=== PATIENT | female | born 1950 | race Caucasian/White ===

== ENCOUNTER 2016-12-14 05:59 | Day surgery (SDC) | payer BC ==
[2016-12-14] VITALS (13 sets, daily range): BP systolic 113–140; BP diastolic 64–85; PULSE 52–67; RESP 10–18; Ht 162.6 cm; Wt 80.0 kg
[~2016-12-14] VITALS: Ht 162.6 cm; Wt 80.0 kg
[~2016-12-14 05:59] MED LIST: METOPROLOL PO
[2016-12-14] MEDS ORDERED: LACTATED RINGER'S 1,000 ML IV* SCH (06:00)
[2016-12-14] MEDS ORDERED: NAPR-688 PO (07:00)
[2016-12-14] MEDS ORDERED: LINA145C PO (07:00)
[2016-12-14] MEDS ORDERED: BISA5TAB6 PO (07:00)
[2016-12-14] MEDS ORDERED: FAMO40OR4 PO (07:00)
[2016-12-14] MEDS ORDERED: ATOR40TA68 PO (07:00)
[2016-12-14] MEDS ORDERED: METH16TA PO (07:00)
[2016-12-14] MEDS ORDERED: GABA100C14 PO (07:00)
--- NOTE | 2016-12-14 07:48 | HPN ---
Date/Time of Note Date/Time of Note DATE: 12/14/16 TIME: 07:47 Interval H&P Admission Note Pt. seen H&P reviewed: No system changes RUSS TRIPATHI MD Dec 14, 2016 07:47
[2016-12-14] MEDS ORDERED: PROPOFOL 20 ML ONE (07:59)
[2016-12-14] MEDS ORDERED: FENTAnyl 50 MCG/ML VIAL ONE (07:59)
[2016-12-14] MEDS ORDERED: MILRINONE LACTATE 1 MG/ML VIAL ONE (08:00)
[2016-12-14] MEDS ORDERED: MIDAZOLAM 1 MG/ML 2 ML INJ ONE (08:01)
[2016-12-14] MEDS ORDERED: DEXAMETHASONE 4 MG/ML 1 ML INJ ONE (08:58)
[2016-12-14] MEDS ORDERED: METOCLOPRAMIDE 10 MG INJ ONE (08:58)
[2016-12-14] MEDS ORDERED: KETOROLAC 30 MG INJ ONE (08:58)
[2016-12-14] MEDS ORDERED: ONDANSETRON 4 MG INJ ONE (08:58)
[2016-12-14] MEDS ORDERED: CEFAZOLIN 1 GM INJ ONE (08:58)
[2016-12-14] MEDS ORDERED: ONDANSETRON 4 MG INJ IV PRN (09:00)
[2016-12-14] MEDS ORDERED: MEPERIDINE 25 MG INJ IV PRN (09:00)
[2016-12-14] MEDS ORDERED: FENTAnyl 50 MCG/ML VIAL IV PRN ×3 (09:00)
[2016-12-14] MEDS ORDERED: HYDROmorphONE (0.2 MG/ML) 10ML SYG IV PRN ×2 (09:00)
[2016-12-14] MEDS ORDERED: hydrALAzine 20 MG INJ IV PRN (09:00)
[2016-12-14] MEDS ORDERED: METOCLOPRAMIDE 10 MG INJ IV PRN (09:00)
[2016-12-14] MEDS ORDERED: OXYCODONE/ACETAMINOPHEN (5/325) TAB PO PRN (09:00)
[2016-12-14] MEDS ORDERED: LABETALOL HCL 20MG INJ IV PRN (09:00)
[2016-12-14] MEDS ORDERED: EPHEDrine SULFATE 50 MG/5 ML SYG IV PRN (09:00)
[2016-12-14] MEDS ORDERED: morphine (1 MG/ML) 10ML SYRINGE IV PRN ×3 (09:00)
[2016-12-14] MEDS ORDERED: DIPHENHYDRAMINE 50 MG INJ IV PRN (09:00)
--- NOTE | 2016-12-14 09:38 | SIPON ---
Date/Time of Note Date/Time of Note DATE: 12/14/16 TIME: 09:34 Operative Report Preoperative Diagnosis ppostmenopausal bleeding Postoperative Diagnosis same as above endometrial polyp submucosal fibroid Operation/Procedure Performed hysteroscopy ECC resection of endometrial polyp and submucosal fibroid [facility] Surgeon see signature line assistant case manager stevie from [employer] Anesthesia: general Estimated blood loss: 0 - 10 ml's Transfusion Required none Specimen endocervical curettings endometrial curetting submcous fibroid endometrial polyp Grafts/Implants none Complications none RUSS TRIPATHI MD Dec 14, 2016 09:38
--- NOTE | 2016-12-14 09:40 | PD.PPDC ---
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
--- NOTE | 2016-12-18 21:54 | OPR ---
DATE OF OPERATION: PREOPERATIVE DIAGNOSIS: Postmenopausal bleeding and submucosal fibroid. POSTOPERATIVE DIAGNOSIS: Postmenopausal bleeding and submucosal fibroid and endometrial polyp. PROCEDURE: Hysteroscopic dilatation and curettage, resection of submucous fibroid and resection of endometrial polyp. ANESTHESIA: General. ANESTHESIOLOGIST: SURGEON: Marielena Barron MD FOOD AND BEVERAGE INTERN: Eamon from [facility]. ESTIMATED BLOOD LOSS: Less than 10 mL. PROCEDURE IN DETAIL: Under proper induction of general anesthesia, the patient was placed in the do rsal lithotomy position. Perineal area and vagina wall were prepped and draped in usual aseptic man ner. Weighted speculum was introduced into the vagina and cervix identified, which was small and pa dimas appearing. The cervix seemed to be stenotic. The cervix is very short. Anterior lip of the c ervix was grasped with a single tooth tenaculum. Endocervical curettage was done, which obtained ve ry scant tissue, and cavity was sounded, which was 7.5 cm. The os was dilated slightly and a size 6 hysteroscope, which was to prepared in the usual fashion, was inserted, which was connected to norm al saline, and the os was visualized. There is polyploid tissue growing in the endocervical junctio n. We passed that primary lesion and there was another lesion which appeared to be a submucosal fi broid near the fundus. The resector was introduced and shaved the endometrial first followed by the submucous fibroid, which was resected all around and completely removed. Additional uterine curett age was done. All the tissue was in the retriever except the endocervical curettings. During the p rocedure, a few pictures were taken. No bleeding noted. The procedure was completed. Instruments were completely removed from the uterine cavity. Fluid deficit was only 150 mL. The patient was se nt to the recovery room in stable condition. Final sponge count and instrument count correct. Dictated By: MARIELENA PRESLEY/ASCENCION Conf#: [id number] DID#: [id number]
== END 2016-12-14 11:45 | disposition home or self-care (01) ==
LOC: SDS 05:59
PROVIDERS: ATTEND Obstetrics & Gynecology
DX: N84.0 Polyp of corpus uteri (principal); D25.9 Leiomyoma of uterus, unspecified; N95.0 Postmenopausal bleeding
CPT/HCPCS: 58558; 88305; J0690; J1100; J1885; J2250; J2405; J2765; J3010; Z7512; Z7610; J2260